=== PATIENT | male | born 1985 | race Hispanic/Latino ===

== ENCOUNTER 2022-05-01 00:40 | Emergency (ER) | payer SELFPAY ==
[2022-05-01] MEDS ORDERED: cefTRIAXone\\ROCEPHIN 500 MG VIAL ONE (01:44)
[2022-05-01] MEDS ORDERED: Sterile Water 10 ML ONE (01:44)
[2022-05-02 15:21] LABS: Chlam.trachomatis by PCR,Urine Not Detected (NotDetected)
== END 2022-05-01 02:00 | disposition home or self-care (01) ==
LOC: CSHERS 00:40
DX: N34.2 Other urethritis (principal)
CPT/HCPCS: 87491; 87591; 96372; 99283; J0696